=== PATIENT | male | born 2000 | race Caucasian/White ===

== ENCOUNTER 2021-04-09 11:48 | Inpatient (IN) ==
[2021-04-09] MEDS: 0.9 % Sodium Chloride 1,000 ML IVC SCH ×3 (12:34→16:20)
[2021-04-09 12:43] LABS: Platelet Count 121 K/mcL (140-400)
[2021-04-09 12:45] LABS: Hematocrit 27.5 % (37.5-50.1); Hemoglobin 9.1 g/dL (12.9-16.9); Immature Platelets 7.6 % (1.1-6.1); Mean Corpuscular HGB Conc 33.1 g/dL (31.6-35.5); Mean Corpuscular Hemoglobin 27.1 pg (28.0-33.3); Mean Corpuscular Volume 81.8 fL (83.0-100.0); Mean Platelet Volume 11.9 fL (9.4-12.4); Red Blood Count 3.36 M/mcL (4.19-5.50); White Blood Count 11.8 K/mcL (4.3-11.1)
[2021-04-09 12:51] LABS: INR 1.3; Prothrombin Time 15.2 Seconds (9.4-12.1)
[2021-04-09 12:53] LABS: Activated Partial Thrombo Time 27.5 Seconds (26.0-36.0)
[2021-04-09 13:03] LABS: VBG HCO3 29 mEq/L (21-27); VBG PCO2 41 mmHg (41-51); VBG PH 7.45 pH Units (7.32-7.42); VBG PO2 35 mmHg (25-50)
[2021-04-09 13:04] LABS: Lymphocytes # 0.7 K/mcL (0.6-4.6); Monocytes # 0.2 K/mcL (0.0-1.3); Neutrophils # 10.9 K/mcL (1.6-8.9)
[2021-04-09 13:05] LABS: Platelet Estimate Normal (Normal)
[2021-04-09 13:07] LABS: Toxic Granulation Present (Not Present)
[2021-04-09 13:16] LABS: Acetaminophen < 10 mcg/mL (10-20); Alanine Aminotransferase 27 Units/L (7-52); Albumin 2.4 g/dL (3.5-5.7); Albumin/Globulin Ratio 0.5 (1.1-2.2); Alkaline Phosphatase 259 Units/L (34-104); Aspartate Amino Transferase 65 Units/L (13-39); BUN/Creatinine Ratio 27 (6-26); Bilirubin,Direct 0.7 mg/dL (0.0-0.2); Bilirubin,Indirect 0.6 mg/dL (0.0-1.0); Bilirubin,Total 1.3 mg/dL (0.3-1.0); Blood Urea Nitrogen 25 mg/dL (6-20); Carbon Dioxide 30 mEq/L (23-29); Chloride 92 mEq/L (98-107); Creatine Kinase 31 Units/L (30-223); Globulin 4.8 g/dL (2.4-3.5); Glucose 100 mg/dL (70-105); Lipase 11 Units/L (11-82); Magnesium 2.2 mg/dL (1.6-2.6); Osmolality,Calculated 274 (280-300); Phosphorous 3.3 mg/dL (2.7-4.5); Potassium 3.8 mEq/L (3.5-5.1); Sodium 130 mEq/L (136-145); Total Protein 7.2 g/dL (6.4-8.9); Troponin I 0.06 ng/mL (< 0.04); eGFR For African Americans > 60 (> 60); eGFR For Non-African Americans > 60 (> 60)
[2021-04-09] MEDS ORDERED: Cefepime HCl 2,000 MG in 0.9 % Sodium Chloride Mini Bag 100 ML IVPB STA (13:29)
[2021-04-09 13:36] LABS: Bilirubin,Urine Negative (Negative); Blood,Urine Small (Negative); Clarity,Urine Clear (Clear); Color,Urine Yellow (Yellow); Glucose,Urine (UA) Normal (Normal); Ketones,Urine Negative (Negative); Leukocyte Esterase,Urine Moderate (Negative); Mucus,Urine Few per lpf (None-Few); Nitrite,Urine Negative (Negative); Protein,Urine 50 mg/dL (Neg-Trace); Specific Gravity,Urine 1.017 (1.010-1.025); Urobilinogen,Urine >=8.0 mg/dL (Normal); WBC,Urine 30-50 per hpf (0-3)
[2021-04-09] MEDS ORDERED: Isovue-370 500 ML BOTTLE IVP ONE (13:42)
[2021-04-09 13:44] LABS: Amphetamine Screen,Urine Negative ng/mL (Cutoff=1000); Barbiturate Screen,Urine Negative ng/mL (Cutoff=200); Benzodiazepines Screen,Urine Negative ng/mL (Cutoff=200); Cannabinoid Screen,Urine Negative ng/mL (Cutoff = 50); Cocaine Screen,Urine Negative ng/mL (Cutoff= 300); Opiate Screen,Urine Negative ng/mL (Cutoff=300); Phencyclidine Screen,Urine Negative ng/mL (Cutoff=25)
[2021-04-09 13:48] LABS: Salicylate < 2.5 mg/dL (15.0-30.0)
[2021-04-09 14:09] LABS: Hepatitis B Surface Antigen Nonreactive (Nonreactive)
[2021-04-09 14:38] LABS: Hepatitis B Core IgM Nonreactive (Nonreactive)
[2021-04-09 14:39] LABS: Hepatitis A Antibody IgM Nonreactive (Nonreactive)
[2021-04-09] MEDS ORDERED: Aspirin 81 MG TAB.CHEW PO STA (16:08)
[2021-04-09] MEDS ORDERED: *HR* Metoprolol 5 MG/5 ML VIAL IVP ONE (16:28)
[2021-04-09] MEDS ORDERED: Acetaminophen 325 MG TABLET PO PRN (17:15)
[2021-04-09] MEDS ORDERED: Naloxone 0.4 MG/ML INJ IVP PRN (17:25)
[2021-04-09] MEDS ORDERED: Ondansetron 4 MG/2 ML VIAL IVP PRN (17:25)
[2021-04-09] MEDS ORDERED: *HR* LORazepam 1 MG TABLET PO PRN (17:46)
[2021-04-09] MEDS: Ringers Solution, Lactated 1,000 ML IVC SCH (18:16)
[2021-04-09] MEDS: *HR* Metoprolol 5 MG/5 ML VIAL IVP PRN (18:21)
[2021-04-09 18:43] LABS: Hepatitis C Virus Antibody Reactive (Nonreactive)
[2021-04-09 18:54] LABS: Adenovirus Not Detected (Not Detect); Bordetella Pertussis Not Detected (Not Detect); Chlamydophila pneumoniae Not Detected (Not Detect); Coronavirus 229E Not Detected (Not Detect); Coronavirus HKU1 Not Detected (Not Detect); Coronavirus NL63 Not Detected (Not Detect); Coronavirus OC43 Not Detected (Not Detect); Human Metapneumovirus Not Detected (Not Detect); Human Rhinovirus/Enterovirus Not Detected (Not Detect); Influenza A Subtype 2009 H1 Not Detected (Not Detect); Influenza B Not Detected (Not Detect); Mycoplasma pneumoniae Not Detected (Not Detect); Parainfluenza Virus 1 Not Detected (Not Detect); Parainfluenza Virus 2 Not Detected (Not Detect); Parainfluenza Virus 3 Not Detected (Not Detect); Parainfluenza Virus 4 Not Detected (Not Detect); Respiratory Syncytial Virus Not Detected (Not Detect); SARS-CoV-2 Not Detected (Not Detect)
[2021-04-09] MEDS: Dexmedetomidine HCl 400 MCG/100 ML MLS IVC SCH (20:35)
[2021-04-09] MEDS ORDERED: *HR* Metoprolol 5 MG/5 ML VIAL IVP STA (23:24)
[2021-04-09] MEDS ORDERED: Acetaminophen IV 500 MG/50 ML BAG IVPB ONE (23:47)
[2021-04-10 00:48] LABS: Hematocrit 20.3 % (37.5-50.1); Mean Corpuscular Hemoglobin 26.9 pg (28.0-33.3); Mean Corpuscular Volume 81.5 fL (83.0-100.0); Mean Platelet Volume 11.3 fL (9.4-12.4); Platelet Count 103 K/mcL (140-400); Red Blood Count 2.49 M/mcL (4.19-5.50); Red Cell Distribution Width 14.1 % (11.5-14.5); White Blood Count 9.7 K/mcL (4.3-11.1)
[2021-04-10 00:49] LABS: Hemoglobin 6.7 g/dL (12.9-16.9)
[2021-04-10 01:08] LABS: Alanine Aminotransferase 16 Units/L (7-52); Albumin/Globulin Ratio 0.5 (1.1-2.2); Alkaline Phosphatase 141 Units/L (34-104); Aspartate Amino Transferase 32 Units/L (13-39); BUN/Creatinine Ratio 25 (6-26); Bilirubin,Total 0.9 mg/dL (0.3-1.0); Blood Urea Nitrogen 18 mg/dL (6-20); Calcium 7.2 mg/dL (8.6-10.3); Carbon Dioxide 24 mEq/L (23-29); Chloride 100 mEq/L (98-107); Globulin 3.8 g/dL (2.4-3.5); Glucose 91 mg/dL (70-105); Magnesium 1.8 mg/dL (1.6-2.6); Osmolality,Calculated 275 (280-300); Phosphorous 3.4 mg/dL (2.7-4.5); Potassium 3.9 mEq/L (3.5-5.1); Sodium 132 mEq/L (136-145); Total Protein 5.8 g/dL (6.4-8.9); eGFR For African Americans > 60 (> 60); eGFR For Non-African Americans > 60 (> 60)
[2021-04-10 01:20] LABS: Lymphocytes # 0.8 K/mcL (0.6-4.6); Monocytes # 0.8 K/mcL (0.0-1.3); Neutrophils # 8.2 K/mcL (1.6-8.9)
[2021-04-10 01:21] LABS: Platelet Estimate Decreased (Normal); Toxic Granulation Present (Not Present); Toxic Vacuolation Present (Not Present)
[2021-04-10] MEDS: Ringers Solution, Lactated 1,000 ML IVC SCH ×2 (01:22→10:14)
[2021-04-10 01:23] LABS: Iron < 10 mcg/dL (65-175)
[2021-04-10 01:24] LABS: Creatine Kinase 31 Units/L (30-223)
[2021-04-10] MEDS ORDERED: Perflutren Lipid Microsphere 1.3 ML in 0.9 % Sodium Chloride 8.7 ML IVP PRN (01:24)
[2021-04-10 01:32] LABS: Ferritin 711 ng/mL (20-250); Thyroid Stimulating Hormone 3.091 mcIU/mL (0.340-5.600)
[2021-04-10 01:33] LABS: Folate 4.4 ng/mL (3.0-16.0)
[2021-04-10] MEDS ORDERED: *HR* LORazepam 2 MG/ML VIAL IVP ONE (01:44)
[2021-04-10 01:47] LABS: Transferrin 135 mg/dL (203-362)
[2021-04-10] MEDS: Dexmedetomidine HCl 400 MCG/100 ML MLS IVC SCH ×4 (02:04→20:59)
[2021-04-10] MEDS: Pantoprazole 40 MG VIAL IVP SCH ×2 (02:58→13:55)
[2021-04-10 03:30] LABS: Ethanol < 10 mg/dL (Less than 10)
[2021-04-10] MEDS ORDERED: 0.9 % Sodium Chloride 250 ML ONE ×2 (03:37→10:35)
[2021-04-10 06:00] LABS: Enterococcus by PCR Not Detected (Not Detect); Staphylococcus aureus by PCR DETECTED (Not Detect); Staphylococcus by PCR DETECTED (Not Detect); mecA Methicillin-Resist Gene DETECTED (Not Detect); vanA/B Vancomycin-Resist Genes Not Detected (Not Detect)
[2021-04-10 06:01] LABS: Acinetobacter baumannii by PCR Not Detected (Not Detect); Enterobacter cloacae Cmplx PCR DETECTED (Not Detect); Enterobacteriaceae by PCR DETECTED (Not Detect); Escherichia coli by PCR Not Detected (Not Detect); Klebsiella oxytoca by PCR Not Detected (Not Detect); Klebsiella pneumoniae by PCR Not Detected (Not Detect); Proteus by PCR Not Detected (Not Detect); Streptococcus agalactiae(B)PCR Not Detected (Not Detect); Streptococcus by PCR Not Detected (Not Detect); Streptococcus pneumoniae PCR Not Detected (Not Detect); Streptococcus pyogenes (A) PCR Not Detected (Not Detect)
[2021-04-10 06:02] LABS: Candida albicans by PCR Not Detected (Not Detect); Candida glabrata by PCR Not Detected (Not Detect); Candida krusei by PCR Not Detected (Not Detect); Candida parapsilosis by PCR Not Detected (Not Detect); Candida tropicalis by PCR Not Detected (Not Detect); Pseudomonas aeruginosa by PCR Not Detected (Not Detect); Serratia marcescens by PCR DETECTED (Not Detect)
[2021-04-10] MEDS ORDERED: Acetaminophen IV 1,000 MG/100 ML BAG IVPB ONE (06:23)
[2021-04-10 07:17] LABS: Basophils % 0.2 %; Hematocrit 22.9 % (37.5-50.1); Hemoglobin 7.4 g/dL (12.9-16.9); Immature Granulocytes % 1.6 % (0-4); Lymphocytes # 0.6 K/mcL (0.6-4.6); Lymphocytes % 6.6 %; Mean Corpuscular HGB Conc 32.3 g/dL (31.6-35.5); Mean Corpuscular Hemoglobin 26.5 pg (28.0-33.3); Mean Corpuscular Volume 82.1 fL (83.0-100.0); Mean Platelet Volume 11.5 fL (9.4-12.4); Monocytes # 0.5 K/mcL (0.0-1.3); Monocytes % 5.4 %; Neutrophils # 7.5 K/mcL (1.6-8.9); Platelet Count 100 K/mcL (140-400); Red Blood Count 2.79 M/mcL (4.19-5.50); Red Cell Distribution Width 14.2 % (11.5-14.5); Segmented Neutrophils % 86.2 %; White Blood Count 8.7 K/mcL (4.3-11.1)
[2021-04-10 08:19] LABS: Enterococcus by PCR Not Detected (Not Detect); mecA Methicillin-Resist Gene DETECTED (Not Detect)
[2021-04-10 08:20] LABS: Acinetobacter baumannii by PCR Not Detected (Not Detect); Candida albicans by PCR Not Detected (Not Detect); Candida glabrata by PCR Not Detected (Not Detect); Candida krusei by PCR Not Detected (Not Detect); Candida parapsilosis by PCR Not Detected (Not Detect); Candida tropicalis by PCR Not Detected (Not Detect); Enterobacter cloacae Cmplx PCR DETECTED (Not Detect); Escherichia coli by PCR Not Detected (Not Detect); Klebsiella oxytoca by PCR Not Detected (Not Detect); Klebsiella pneumoniae by PCR Not Detected (Not Detect); Proteus by PCR Not Detected (Not Detect); Pseudomonas aeruginosa by PCR Not Detected (Not Detect); Serratia marcescens by PCR DETECTED (Not Detect); Staphylococcus aureus by PCR DETECTED (Not Detect); Streptococcus agalactiae(B)PCR Not Detected (Not Detect); Streptococcus by PCR Not Detected (Not Detect); Streptococcus pneumoniae PCR Not Detected (Not Detect); Streptococcus pyogenes (A) PCR Not Detected (Not Detect)
[2021-04-10] MEDS ORDERED: Iron Sucrose Complex 400 MG in 0.9 % Sodium Chloride 250 ML IVPB ONE (11:20)
[2021-04-10] MEDS ORDERED: Acetaminophen IV 1,000 MG/100 ML BAG IVPB PRN (15:58)
[2021-04-10] MEDS: *HR* LORazepam 2 MG/ML VIAL IVP PRN ×2 (16:15→22:23)
[2021-04-10] MEDS: Piperacillin/Tazobactam 3.375 GM in 0.9 % Sodium Chloride Mini Bag 100 ML IVPB SCH (17:11)
[2021-04-10] MEDS: *HR* Metoprolol 5 MG/5 ML VIAL IVP PRN ×2 (17:11→20:59)
[2021-04-11 01:08] LABS: Basophils % 0.1 %; Hematocrit 25.6 % (37.5-50.1); Hemoglobin 8.9 g/dL (12.9-16.9); Immature Granulocytes % 1.9 % (0-4); Lymphocytes # 0.7 K/mcL (0.6-4.6); Lymphocytes % 5.1 %; Mean Corpuscular HGB Conc 34.8 g/dL (31.6-35.5); Mean Corpuscular Hemoglobin 28.3 pg (28.0-33.3); Mean Corpuscular Volume 81.5 fL (83.0-100.0); Mean Platelet Volume 10.8 fL (9.4-12.4); Monocytes # 0.5 K/mcL (0.0-1.3); Monocytes % 3.8 %; Neutrophils # 12.4 K/mcL (1.6-8.9); Platelet Count 129 K/mcL (140-400); Red Blood Count 3.14 M/mcL (4.19-5.50); Red Cell Distribution Width 14.5 % (11.5-14.5); Segmented Neutrophils % 89.1 %
[2021-04-11 01:10] LABS: White Blood Count 13.9 K/mcL (4.3-11.1)
[2021-04-11 01:25] LABS: Platelet Estimate Slight Decrease (Normal); Toxic Granulation Present (Not Present)
[2021-04-11 01:31] LABS: BUN/Creatinine Ratio 31 (6-26); Blood Urea Nitrogen 22 mg/dL (6-20); Calcium 7.3 mg/dL (8.6-10.3); Carbon Dioxide 22 mEq/L (23-29); Chloride 106 mEq/L (98-107); Glucose 96 mg/dL (70-105); Osmolality,Calculated 285 (280-300); Potassium 3.9 mEq/L (3.5-5.1); Sodium 136 mEq/L (136-145); eGFR For African Americans > 60 (> 60); eGFR For Non-African Americans > 60 (> 60)
[2021-04-11] MEDS: Pantoprazole 40 MG VIAL IVP SCH (01:58)
[2021-04-11] MEDS: Dexmedetomidine HCl 400 MCG/100 ML MLS IVC SCH ×2 (01:59→08:17)
[2021-04-11] MEDS: Piperacillin/Tazobactam 3.375 GM in 0.9 % Sodium Chloride Mini Bag 100 ML IVPB SCH ×2 (01:59→10:20)
[2021-04-11] MEDS: *HR* LORazepam 2 MG/ML VIAL IVP PRN (06:16)
[2021-04-11 07:28] VITALS: O2SAT 96
[2021-04-11] MEDS ORDERED: Ertapenem 1,000 MG in 0.9 % Sodium Chloride Mini Bag 100 ML IVPB SCH (11:00)
[2021-04-11 11:42] VITALS: BP 122/55; PULSE 124; TEMP 98.8
== END 2021-04-11 13:36 | disposition short-term general hospital (02) | DRG 720 ==
LOC: 2ANU 11:48 → EMEROOARM 11:48 → 2NENU 11:48 → 2NNU 04-10 02:42
PROVIDERS: ADMIT Internal Medicine; ATTEND Internal Medicine

== ENCOUNTER 2021-06-26 09:56 | Inpatient (IN) ==
[2021-06-26] MEDS ORDERED: Isovue-370 500 ML BOTTLE IVP ONE (10:16)
[2021-06-26] MEDS ORDERED: Vancomycin 1,250 MG/262.5 ML IV.SOLN IVPB ONE (10:50)
[2021-06-26] MEDS ORDERED: Ertapenem 1,000 MG in 0.9 % Sodium Chloride Mini Bag 100 ML IVPB ONE (10:51)
[2021-06-26 10:59] LABS: VBG HCO3 23 mEq/L (21-27); VBG PCO2 37 mmHg (41-51); VBG PH 7.41 pH Units (7.32-7.42); VBG PO2 50 mmHg (25-50)
[2021-06-26] MEDS ORDERED: 0.9 % Sodium Chloride 1,000 ML IV ONE ×2 (11:00→13:22)
[2021-06-26 11:14] LABS: INR 1.9; Prothrombin Time 21.6 Seconds (9.4-12.1)
[2021-06-26 11:16] LABS: Activated Partial Thrombo Time 30.5 Seconds (26.0-36.0)
[2021-06-26 11:30] LABS: BUN/Creatinine Ratio 26 (6-26); Blood Urea Nitrogen 41 mg/dL (6-20); Calcium 7.7 mg/dL (8.6-10.3); Carbon Dioxide 24 mEq/L (23-29); Chloride 96 mEq/L (98-107); Creatine Kinase 15 Units/L (30-223); Ethanol < 10 mg/dL (Less than 10); Glucose 87 mg/dL (70-105); Magnesium 1.7 mg/dL (1.6-2.6); Osmolality,Calculated 281 (280-300); Potassium 3.3 mEq/L (3.5-5.1); Sodium 131 mEq/L (136-145); Troponin I 0.21 ng/mL (< 0.04); eGFR For African Americans > 60 (> 60); eGFR For Non-African Americans 55 (> 60)
[2021-06-26 11:58] LABS: Hemoglobin 9.1 g/dL (12.9-16.9); Red Cell Distribution Width 17.2 % (11.5-14.5)
[2021-06-26 12:00] LABS: Hematocrit 28.3 % (37.5-50.1); Immature Platelets 22.1 % (1.1-6.1); Mean Corpuscular HGB Conc 32.2 g/dL (31.6-35.5); Mean Corpuscular Hemoglobin 25.7 pg (28.0-33.3); Mean Corpuscular Volume 79.9 fL (83.0-100.0); Red Blood Count 3.54 M/mcL (4.19-5.50); White Blood Count 10.8 K/mcL (4.3-11.1)
[2021-06-26 12:13] LABS: C-Reactive Protein 184 mg/L (Less than 10)
[2021-06-26 12:19] LABS: Platelet Count 26 K/mcL (140-400)
[2021-06-26 12:20] LABS: Lymphocytes # 0.4 K/mcL (0.6-4.6); Monocytes # 0.4 K/mcL (0.0-1.3); Neutrophils # 9.9 K/mcL (1.6-8.9); Platelet Estimate Marked Decrease (Normal)
[2021-06-26 12:46] LABS: Bacteria,Urine Few per hpf (None-Few); Bilirubin,Urine Small (Negative); Blood,Urine Moderate (Negative); Clarity,Urine Turbid (Clear); Color,Urine Yellow (Yellow); Glucose,Urine (UA) Normal (Normal); Hyaline Casts,Urine Moderate per lpf (None Seen); Ketones,Urine Negative (Negative); Leukocyte Esterase,Urine Moderate (Negative); Mucus,Urine Few per lpf (None-Few); Nitrite,Urine Negative (Negative); PH,Urine 5.5 pH Units (5.0-8.0); Protein,Urine 70 mg/dL (Neg-Trace); RBC,Urine 30-50 per hpf (0-3); Specific Gravity,Urine > 1.030 (1.010-1.025); Squamous Epithelial Cell,Urine Few per hpf (None-Few); Transitional Epi Cells,Urine Few per hpf (None-Few); WBC,Urine 50-100 per hpf (0-3)
[2021-06-26 12:58] LABS: Amphetamine Screen,Urine Negative ng/mL (Cutoff=1000); Barbiturate Screen,Urine Negative ng/mL (Cutoff=200); Benzodiazepines Screen,Urine Negative ng/mL (Cutoff=300); Cannabinoid Screen,Urine Negative ng/mL (Cutoff = 50); Cocaine Screen,Urine Negative ng/mL (Cutoff= 300); Opiate Screen,Urine Negative ng/mL (Cutoff=300); Phencyclidine Screen,Urine Negative ng/mL (Cutoff=25)
[2021-06-26 13:21] LABS: Influenza A PCR Negative (Negative); Influenza B PCR Negative (Negative); Resp. Syncytial Virus PCR Negative (Negative)
[2021-06-26 13:23] LABS: SARS-CoV-2 by PCR (In House) Positive (Negative)
[2021-06-26] MEDS ORDERED: 0.9 % Sodium Chloride 1,000 ML IVC ONE (13:23)
[2021-06-26] MEDS ORDERED: Ipratropium 1 PUFF INHALER IH PRN (14:15)
[2021-06-26] MEDS ORDERED: Naloxone 0.4 MG/ML INJ IVP PRN (14:15)
[2021-06-26] MEDS ORDERED: Acetaminophen 325 MG TABLET PO PRN (14:15)
[2021-06-26] MEDS ORDERED: Perflutren Lipid Microsphere 1.3 ML in 0.9 % Sodium Chloride 8.7 ML IVP PRN (14:15)
[2021-06-26] MEDS ORDERED: hydrOXYzine pamoate 25 MG CAPSULE PO PRN (14:22)
[2021-06-26] MEDS ORDERED: Vancomycin (wt based) 1,000 MG VIAL IVPB SCH (15:00)
[2021-06-26] MEDS ORDERED: 0.9 % Sodium Chloride 250 ML ONE ×3 (15:35→23:32)
[2021-06-26 18:26] LABS: ABG Base Excess -3 mEq/L (-2 to 3); ABG HCO3 21 mEq/L (21-27); ABG Oxygen Saturation 92 % (95-98); ABG PCO2 33 mmHg (35-45); ABG PH 7.42 pH Units (7.32-7.45); ABG PO2 60 mmHg (85-104); ABG TCO2 22 mEq/L (20-26)
[2021-06-26 18:41] LABS: INR 1.9; Prothrombin Time 20.8 Seconds (9.4-12.1)
[2021-06-26] MEDS: Norepinephrine 4 MG/254 ML IV.SOLN IVC SCH (19:02)
[2021-06-26] MEDS: *HR* Buprenorphine HCl 8 MG TAB.SUBL SL SCH (20:23)
[2021-06-26] MEDS: Gabapentin 300 MG CAPSULE PO SCH (20:24)
[2021-06-27] MEDS ORDERED: 0.9 % Sodium Chloride 1,000 ML ONE (00:42)
[2021-06-27] MEDS ORDERED: 0.9 % Sodium Chloride 500 ML ONE (00:53)
[2021-06-27 01:16] LABS: VBG Ionized Calcium 1.01 mmol/L (1.15-1.35)
[2021-06-27 01:40] LABS: Alanine Aminotransferase 5 Units/L (7-52); Albumin 2.2 g/dL (3.5-5.7); Albumin/Globulin Ratio 0.6 (1.1-2.2); Alkaline Phosphatase 112 Units/L (34-104); Aspartate Amino Transferase 15 Units/L (13-39); BUN/Creatinine Ratio 35 (6-26); Bilirubin,Direct 0.7 mg/dL (0.0-0.2); Bilirubin,Indirect 0.7 mg/dL (0.0-1.0); Bilirubin,Total 1.4 mg/dL (0.3-1.0); Blood Urea Nitrogen 33 mg/dL (6-20); Calcium 7.1 mg/dL (8.6-10.3); Carbon Dioxide 23 mEq/L (23-29); Chloride 101 mEq/L (98-107); Globulin 3.9 g/dL (2.4-3.5); Glucose 130 mg/dL (70-105); Magnesium 2.5 mg/dL (1.6-2.6); Osmolality,Calculated 287 (280-300); Phosphorous 5.7 mg/dL (2.7-4.5); Potassium 3.9 mEq/L (3.5-5.1); Sodium 134 mEq/L (136-145); Total Protein 6.1 g/dL (6.4-8.9); eGFR For African Americans > 60 (> 60); eGFR For Non-African Americans > 60 (> 60)
[2021-06-27] MEDS: Calcium Gluconate 1gm/50mL 1 GM/50 ML BAG IVPB SCH ×2 (02:00→03:00)
[2021-06-27 03:07] LABS: Acinetobacter baumannii by PCR Not Detected (Not Detect); Candida albicans by PCR Not Detected (Not Detect); Candida glabrata by PCR Not Detected (Not Detect); Candida krusei by PCR Not Detected (Not Detect); Candida parapsilosis by PCR Not Detected (Not Detect); Candida tropicalis by PCR Not Detected (Not Detect); Enterobacter cloacae Cmplx PCR Not Detected (Not Detect); Enterococcus by PCR Not Detected (Not Detect); Escherichia coli by PCR Not Detected (Not Detect); Klebsiella oxytoca by PCR Not Detected (Not Detect); Klebsiella pneumoniae by PCR Not Detected (Not Detect); Proteus by PCR Not Detected (Not Detect); Pseudomonas aeruginosa by PCR Not Detected (Not Detect); Serratia marcescens by PCR DETECTED (Not Detect); Staphylococcus aureus by PCR Not Detected (Not Detect); Staphylococcus by PCR Not Detected (Not Detect); Streptococcus agalactiae(B)PCR Not Detected (Not Detect); Streptococcus by PCR Not Detected (Not Detect); Streptococcus pneumoniae PCR Not Detected (Not Detect); Streptococcus pyogenes (A) PCR Not Detected (Not Detect); blaKPC Carbapenem-Resist Gene Not Detected (Not Detect); mecA Methicillin-Resist Gene Not Detected (Not Detect); vanA/B Vancomycin-Resist Genes Not Detected (Not Detect)
[2021-06-27] MEDS: Norepinephrine 4 MG/254 ML IV.SOLN IVC SCH ×2 (04:41→18:18)
[2021-06-27 05:24] LABS: Hematocrit 25.8 % (37.5-50.1); Hemoglobin 8.2 g/dL (12.9-16.9); Immature Granulocytes % 0.8 % (0-4); Lymphocytes # 0.8 K/mcL (0.6-4.6); Lymphocytes % 15.2 %; Mean Corpuscular HGB Conc 31.8 g/dL (31.6-35.5); Mean Corpuscular Hemoglobin 26.1 pg (28.0-33.3); Mean Corpuscular Volume 82.2 fL (83.0-100.0); Monocytes # 0.1 K/mcL (0.0-1.3); Monocytes % 1.7 %; Neutrophils # 4.3 K/mcL (1.6-8.9); Red Blood Count 3.14 M/mcL (4.19-5.50); Red Cell Distribution Width 17.6 % (11.5-14.5); Segmented Neutrophils % 82.3 %; White Blood Count 5.2 K/mcL (4.3-11.1)
[2021-06-27 05:29] LABS: Platelet Count 16 K/mcL (140-400)
[2021-06-27 05:30] LABS: INR 2.1; Prothrombin Time 23.7 Seconds (9.4-12.1)
[2021-06-27 05:42] LABS: Alanine Aminotransferase 4 Units/L (7-52); Albumin 2.1 g/dL (3.5-5.7); Albumin/Globulin Ratio 0.5 (1.1-2.2); Alkaline Phosphatase 106 Units/L (34-104); Aspartate Amino Transferase 14 Units/L (13-39); BUN/Creatinine Ratio 39 (6-26); Bilirubin,Direct 0.8 mg/dL (0.0-0.2); Bilirubin,Indirect 0.5 mg/dL (0.0-1.0); Bilirubin,Total 1.3 mg/dL (0.3-1.0); Blood Urea Nitrogen 33 mg/dL (6-20); Calcium 7.6 mg/dL (8.6-10.3); Carbon Dioxide 24 mEq/L (23-29); Chloride 102 mEq/L (98-107); Globulin 3.9 g/dL (2.4-3.5); Glucose 120 mg/dL (70-105); Magnesium 2.5 mg/dL (1.6-2.6); Osmolality,Calculated 286 (280-300); Phosphorous 6.1 mg/dL (2.7-4.5); Sodium 134 mEq/L (136-145); eGFR For African Americans > 60 (> 60); eGFR For Non-African Americans > 60 (> 60)
[2021-06-27 05:59] LABS: Anisocytosis 1+ (Not Present); Platelet Estimate Marked Decrease (Normal); Toxic Granulation Present (Not Present)
[2021-06-27] MEDS: Gabapentin 300 MG CAPSULE PO SCH ×2 (08:16→20:23)
[2021-06-27] MEDS ORDERED: NALOXONE HCL SL SCH (09:00)
[2021-06-27] MEDS ORDERED: Ertapenem 1,000 MG in 0.9 % Sodium Chloride Mini Bag 100 ML IVPB SCH (09:00)
[2021-06-27] MEDS ORDERED: BUPRENORPHINE HCL SL SCH (09:00)
[2021-06-27] MEDS: *HR* Buprenorphine HCl 8 MG TAB.SUBL SL SCH (10:16)
[2021-06-27] MEDS: Vancomycin 1,500 MG/265 ML IV.SOLN IVPB SCH (13:41)
[2021-06-27] MEDS ORDERED: levoFLOXacin 750 MG/150 ML 750 MG/150 ML BAG IVPB SCH (14:00)
[2021-06-27 20:29] VITALS: TEMP 98.4
[2021-06-28] MEDS: Norepinephrine 4 MG/254 ML IV.SOLN IVC SCH (02:33)
[2021-06-28] MEDS: Vancomycin 1,500 MG/265 ML IV.SOLN IVPB SCH (02:37)
[2021-06-28 03:15] VITALS: BP 96/72; PULSE 93; O2SAT 93
== END 2021-06-28 03:51 | disposition short-term general hospital (02) | DRG 720 ==
LOC: EMEROOARM 09:56 → ICNU 14:11
PROVIDERS: ADMIT Pediatrics; ATTEND Pediatrics

== ENCOUNTER 2021-09-12 14:35 | Inpatient (IN) ==
[2021-09-12] MEDS ORDERED: Piperacillin/Tazobactam 3.375 GM in 0.9 % Sodium Chloride Mini Bag 100 ML IVPB ONE (14:52)
[2021-09-12 15:29] LABS: Hemoglobin 11.4 g/dL (12.9-16.9); Mean Corpuscular HGB Conc 30.8 g/dL (31.6-35.5); Mean Corpuscular Hemoglobin 26.3 pg (28.0-33.3)
[2021-09-12 15:31] LABS: Basophils % 0.3 %; Immature Granulocytes % 0.5 % (0-4); Immature Platelets 14.5 % (1.1-6.1); Lymphocytes # 1.3 K/mcL (0.6-4.6); Mean Corpuscular Volume 85.5 fL (83.0-100.0); Monocytes # 0.1 K/mcL (0.0-1.3); Monocytes % 1.2 %; Red Blood Count 4.33 M/mcL (4.19-5.50); Red Cell Distribution Width 17.5 % (11.5-14.5)
[2021-09-12 15:34] LABS: VBG HCO3 21 mEq/L (21-27); VBG PCO2 43 mmHg (41-51); VBG PH 7.29 pH Units (7.32-7.42); VBG PO2 43 mmHg (25-50)
[2021-09-12 15:34] LABS: Neutrophils # 10.4 K/mcL (1.6-8.9)
[2021-09-12 15:35] LABS: Platelet Count 29 K/mcL (140-400)
[2021-09-12 15:36] LABS: INR 1.5; Prothrombin Time 16.7 Seconds (9.4-12.1)
[2021-09-12 15:39] LABS: Activated Partial Thrombo Time 41.9 Seconds (26.0-36.0)
[2021-09-12] MEDS: 0.9 % Sodium Chloride 1,000 ML IVC SCH ×2 (16:26→17:27)
[2021-09-12] MEDS ORDERED: Isovue-370 500 ML BOTTLE IVP ONE (16:31)
[2021-09-12 17:10] LABS: Albumin 3.3 g/dL (3.5-5.7); Albumin/Globulin Ratio 0.8 (1.1-2.2); Bilirubin,Direct 0.3 mg/dL (0.0-0.2); Bilirubin,Indirect 0.5 mg/dL (0.0-1.0); Bilirubin,Total 0.8 mg/dL (0.3-1.0); Calcium 8.2 mg/dL (8.6-10.3); Globulin 4.2 g/dL (2.4-3.5); Magnesium 1.7 mg/dL (1.6-2.6); Phosphorous 6.4 mg/dL (2.7-4.5); Total Protein 7.5 g/dL (6.4-8.9); Troponin I 0.06 ng/mL (< 0.04)
[2021-09-12 18:07] LABS: Adenovirus Not Detected (Not Detect); Bordetella Pertussis Not Detected (Not Detect); Chlamydophila pneumoniae Not Detected (Not Detect); Coronavirus 229E Not Detected (Not Detect); Coronavirus HKU1 Not Detected (Not Detect); Coronavirus NL63 Not Detected (Not Detect); Coronavirus OC43 Not Detected (Not Detect); Human Metapneumovirus Not Detected (Not Detect); Human Rhinovirus/Enterovirus Not Detected (Not Detect); Influenza A Subtype 2009 H1 Not Detected (Not Detect); Influenza B Not Detected (Not Detect); Mycoplasma pneumoniae Not Detected (Not Detect); Parainfluenza Virus 1 Not Detected (Not Detect); Parainfluenza Virus 2 Not Detected (Not Detect); Parainfluenza Virus 3 Not Detected (Not Detect); Parainfluenza Virus 4 Not Detected (Not Detect); Respiratory Syncytial Virus Not Detected (Not Detect); SARS-CoV-2 Not Detected (Not Detect)
[2021-09-13] MEDS ORDERED: Ringers Solution, Lactated 1,000 ML IVC ONE ×2 (02:34→03:58)
[2021-09-13] MEDS ORDERED: Melatonin 3 MG TABLET PO PRN (03:36)
[2021-09-13] MEDS ORDERED: Naloxone 0.4 MG/ML INJ IVP PRN (03:36)
[2021-09-13] MEDS ORDERED: Ondansetron 4 MG/2 ML VIAL IVP PRN (03:36)
[2021-09-13 04:18] LABS: Bacteria,Urine Few per hpf (None-Few); Bilirubin,Urine Negative (Negative); Blood,Urine Large (Negative); Clarity,Urine Turbid (Clear); Color,Urine Yellow (Yellow); Glucose,Urine (UA) Normal (Normal); Hyaline Casts,Urine Many per lpf (None Seen); Ketones,Urine Negative (Negative); Leukocyte Esterase,Urine Trace (Negative); Mucus,Urine Few per lpf (None-Few); Nitrite,Urine Negative (Negative); PH,Urine 5.5 pH Units (5.0-8.0); Protein,Urine 70 mg/dL (Neg-Trace); RBC,Urine TNTC per hpf (0-3); Specific Gravity,Urine > 1.030 (1.010-1.025); Squamous Epithelial Cell,Urine Few per hpf (None-Few); Urobilinogen,Urine Normal (Normal); WBC,Urine 15-30 per hpf (0-3)
[2021-09-13 04:23] LABS: Amphetamine Screen,Urine Negative ng/mL (Cutoff=1000); Barbiturate Screen,Urine Negative ng/mL (Cutoff=200); Benzodiazepines Screen,Urine Negative ng/mL (Cutoff=200); Cannabinoid Screen,Urine Negative ng/mL (Cutoff = 50); Cocaine Screen,Urine Negative ng/mL (Cutoff= 300); Opiate Screen,Urine Negative ng/mL (Cutoff=300); Phencyclidine Screen,Urine Negative ng/mL (Cutoff=25)
[2021-09-13] MEDS: 0.9 % Sodium Chloride 1,000 ML IVC SCH ×3 (05:05→21:17)
[2021-09-13 05:22] LABS: Basophils % 0.3 %; Eosinophils % 0.1 %; Mean Corpuscular Volume 85.2 fL (83.0-100.0)
[2021-09-13 05:24] LABS: Hematocrit 31.2 % (37.5-50.1); Hemoglobin 9.7 g/dL (12.9-16.9); Immature Platelets 23.8 % (1.1-6.1); Lymphocytes # 1.4 K/mcL (0.6-4.6); Lymphocytes % 12.9 %; Mean Corpuscular HGB Conc 31.1 g/dL (31.6-35.5); Mean Corpuscular Hemoglobin 26.5 pg (28.0-33.3); Monocytes # 0.4 K/mcL (0.0-1.3); Monocytes % 3.6 %; Neutrophils # 9.1 K/mcL (1.6-8.9); Red Blood Count 3.66 M/mcL (4.19-5.50); Red Cell Distribution Width 17.4 % (11.5-14.5); Segmented Neutrophils % 82.1 %; White Blood Count 11.1 K/mcL (4.3-11.1)
[2021-09-13] MEDS ORDERED: Ipratropium/Albuterol Neb 3 ML IH PRN (05:28)
[2021-09-13 05:35] LABS: Platelet Count 17 K/mcL (140-400); Platelet Estimate Marked Decrease (Normal)
[2021-09-13 05:36] LABS: Calcium 7.9 mg/dL (8.6-10.3); Magnesium 1.8 mg/dL (1.6-2.6); Phosphorous 5.2 mg/dL (2.7-4.5); Potassium 4.5 mEq/L (3.5-5.1)
[2021-09-13] MEDS: Oxymetazoline Nasal SPRAY BOTTLE 15ML NS PRN ×3 (06:12→06:54)
[2021-09-13 06:27] LABS: Chloride,Urine 17 mEq/L; Creatinine,Urine 199 mg/dL; Sodium, Urine 15.9 mEq/L
[2021-09-13] MEDS ORDERED: 0.9 % Sodium Chloride 500 ML IVC ONE (07:55)
[2021-09-13] MEDS ORDERED: 0.9 % Sodium Chloride 250 ML IVC SCH (08:00)
[2021-09-13 08:01] LABS: ABG Base Excess -4 mEq/L (-2 to 3); ABG HCO3 20 mEq/L (21-27); ABG Oxygen Saturation 94 % (95-98); ABG PCO2 32 mmHg (35-45); ABG PO2 69 mmHg (85-104); ABG TCO2 21 mEq/L (20-26)
[2021-09-13 08:36] LABS: Hematocrit 27.2 % (37.5-50.1); Hemoglobin 8.6 g/dL (12.9-16.9)
[2021-09-13 08:54] LABS: Enterococcus by PCR Not Detected (Not Detect); mecA Methicillin-Resist Gene DETECTED (Not Detect)
[2021-09-13 08:55] LABS: Acinetobacter baumannii by PCR Not Detected (Not Detect); Candida albicans by PCR Not Detected (Not Detect); Candida glabrata by PCR Not Detected (Not Detect); Candida krusei by PCR Not Detected (Not Detect); Candida tropicalis by PCR Not Detected (Not Detect); Enterobacter cloacae Cmplx PCR Not Detected (Not Detect); Enterobacteriaceae by PCR Not Detected (Not Detect); Escherichia coli by PCR Not Detected (Not Detect); Klebsiella oxytoca by PCR Not Detected (Not Detect); Klebsiella pneumoniae by PCR Not Detected (Not Detect); Proteus by PCR Not Detected (Not Detect); Pseudomonas aeruginosa by PCR Not Detected (Not Detect); Serratia marcescens by PCR Not Detected (Not Detect); Staphylococcus aureus by PCR DETECTED (Not Detect); Streptococcus agalactiae(B)PCR Not Detected (Not Detect); Streptococcus by PCR Not Detected (Not Detect); Streptococcus pneumoniae PCR Not Detected (Not Detect); Streptococcus pyogenes (A) PCR Not Detected (Not Detect)
[2021-09-13] MEDS ORDERED: cefTRIAXone 1,000 MG in 0.9 % Sodium Chloride Mini Bag 100 ML IVPB SCH (09:00)
[2021-09-13] MEDS ORDERED: Vancomycin 1,250 MG/262.5 ML IV.SOLN IVPB SCH ×2 (09:00→16:00)
[2021-09-13] MEDS ORDERED: 0.9 % Sodium Chloride 250 ML ONE (09:26)
[2021-09-13] MEDS: Ertapenem 1,000 MG in 0.9 % Sodium Chloride Mini Bag 100 ML IVPB SCH (11:31)
[2021-09-13 17:05] LABS: Hematocrit 30.3 % (37.5-50.1); Hemoglobin 9.8 g/dL (12.9-16.9)
[2021-09-13] MEDS ORDERED: Acetaminophen 325 MG TABLET PO PRN (21:21)
[2021-09-14 02:09] LABS: Basophils % 0.2 %; Eosinophils % 0.1 %; Hematocrit 26.4 % (37.5-50.1); Hemoglobin 8.5 g/dL (12.9-16.9); Mean Corpuscular HGB Conc 32.2 g/dL (31.6-35.5); Red Cell Distribution Width 17.4 % (11.5-14.5)
[2021-09-14 02:10] LABS: Immature Granulocytes % 1.9 % (0-4); Immature Platelets 14.5 % (1.1-6.1); Lymphocytes # 0.8 K/mcL (0.6-4.6); Lymphocytes % 7.3 %; Mean Corpuscular Volume 83.8 fL (83.0-100.0); Monocytes # 0.3 K/mcL (0.0-1.3); Monocytes % 3.2 %; Red Blood Count 3.15 M/mcL (4.19-5.50); Segmented Neutrophils % 87.3 %; White Blood Count 10.6 K/mcL (4.3-11.1)
[2021-09-14 02:19] LABS: Neutrophils # 9.3 K/mcL (1.6-8.9)
[2021-09-14 02:22] LABS: Platelet Count 23 K/mcL (140-400)
[2021-09-14 02:29] LABS: Alanine Aminotransferase 6 Units/L (7-52); Albumin 2.7 g/dL (3.5-5.7); Albumin/Globulin Ratio 0.8 (1.1-2.2); Alkaline Phosphatase 88 Units/L (34-104); Aspartate Amino Transferase 14 Units/L (13-39); BUN/Creatinine Ratio 26 (6-26); Bilirubin,Total 0.8 mg/dL (0.3-1.0); Blood Urea Nitrogen 28 mg/dL (6-20); Calcium 7.9 mg/dL (8.6-10.3); Carbon Dioxide 19 mEq/L (23-29); Chloride 102 mEq/L (98-107); Globulin 3.2 g/dL (2.4-3.5); Glucose 110 mg/dL (70-105); Osmolality,Calculated 274 (280-300); Potassium 3.6 mEq/L (3.5-5.1); Sodium 129 mEq/L (136-145); Total Protein 5.9 g/dL (6.4-8.9); eGFR For African Americans > 60 (> 60); eGFR For Non-African Americans > 60 (> 60)
[2021-09-14] MEDS: Ertapenem 1,000 MG in 0.9 % Sodium Chloride Mini Bag 100 ML IVPB SCH (09:12)
[2021-09-14] MEDS: 0.9 % Sodium Chloride 1,000 ML IVC SCH ×2 (09:12→22:18)
[2021-09-14] MEDS ORDERED: Potassium Chloride Elixir 20 MEQ/15 ML UDC PO ONE (15:53)
[2021-09-14] MEDS ORDERED: *HR* Metoprolol 5 MG/5 ML VIAL IVP ONE (15:54)
[2021-09-14 19:27] VITALS: TEMP 99.6
[2021-09-15 01:16] VITALS: BP 89/59; PULSE 95; O2SAT 89
[2021-09-17 08:42] LABS: Candida parapsilosis by PCR Not Detected (Not Detect)
== END 2021-09-15 01:50 | disposition short-term general hospital (02) | DRG 720 ==
LOC: EMEROOARM 14:35 → 2NNU 14:35 → OBSVTOIN 09-13 03:39 → SUATTDRO 09-13 03:39 → 2NNU 09-13 04:37
PROVIDERS: ADMIT Student in an Organized Health Care Education/Training Program; ATTEND Internal Medicine